=== PATIENT | female | born 1950 | race African-American/Black ===

== ENCOUNTER 2021-06-01 12:20 | Emergency (ER) | payer OTHER ==
[2021-06-01 12:33] VITALS: BP 113/71; PULSE 101; TEMP 97.9; BMI 32.8
[2021-06-01] MEDS ORDERED: LIDOCAINE 5% TOPICAL PATCH TP ONE (14:29)
[2021-06-01] MEDS ORDERED: KETOROLAC TROMETHAMINE 30 MG/1 ML VIAL IM ONE (14:29)
[2021-06-01] MEDS ORDERED: KETOROLAC TROMETHAMINE 15 MG/ML VIAL ONE (14:30)
[2021-06-01] MEDS ORDERED: LIDOCAINE 5% TOPICAL PATCH ONE (14:30)
[2021-06-01] MEDS ORDERED: LIDOCAINE PATCH REMOVAL MC ONE (22:00)
== END 2021-06-01 15:49 | disposition home or self-care (01) ==
LOC: JER 12:20
PROC: 3E023GC Introduction of Other Therapeutic Substance into Muscle, Percutaneous Approach (ICD-10-PCS; principal; 2021-06-01)
DX: M79.604 Pain in right leg (principal)
CPT/HCPCS: 72100-TC-FY; 99284-25